=== PATIENT | male | born 2000 | race Caucasian/White ===

== ENCOUNTER 2023-11-13 12:21 | Emergency (ER) | payer SELFPAY ==
[2023-11-13 12:38] VITALS: BP 132/91
[2023-11-13 12:44] VITALS: BMI 22.4
--- NOTE | 2023-11-13 13:49 | ED.GENMED ---
History of Present Illness
General
Chief Complaint: Crisis Evaluation
Source: patient
Exam Limitations: none
Time Seen by Provider: 11/13/23 12:59
Nursing documentation reviewed up to this point in time: agreed with
History of Present Illness
History of Present Illness:
Patient is a 23-year-old male who presents to the ER for crisis evaluation. Patient has a history of anxiety depression and previous suicide attempt. He was on Lexapro and Depakote however stopped this a while ago because he thought he was okay.
He just reports he is by himself and feeling down. He feels suicidal last night. He denies now but reports he 'just feel hopeless.'
He presented via EMS and reports he called crisis who recommended he call EMS.
Patient has no physical complaints. He takes no other medications. He denies smoking cigarettes he does smoke occasional marijuana he denies any other drug use.
Review of Systems
Review of Systems
Allergies reviewed?: Yes
All Other Systems: ROS reviewed and negative except as documented in HPI and ROS
Constitutional: Reports no symptoms; Denies fever, fatigue or chills
Cardiac: Reports no symptoms
ABD/GI: Reports no symptoms
Musculoskeletal: Reports no symptoms
Skin: Reports no symptoms
Neurological: Reports no symptoms
Psychiatric: Reports no symptoms
Phy Exam
General Physical Exam
General Presentation: no apparent distress
General age: appears stated age
General Skin: warm and dry
General Habitus: normal
General Mental: alert
General Hydration: appears well hydrated
Neurological Exam
Neurological Exam: alert and oriented x3
Musculoskeletal Exam
Musculoskeletal Exam: full ROM
Skin Exam
Skin Exam: normal color and warm/dry
Psychiatric Exam
Psychiatric Exam: depressed and other (Flat affect)
Course
Orders/Labs/Results
Orders:
Orders
11/13/23 13:40
Complete Blood Count/With Diff Urgent
Comprehensive Metabolic Panel Urgent
11/13/23 13:41
Urine Drug Abuse Screen Stat
Date Specimen was Collected: 11/13/23
Time Specimen was Collected: 13:41
Vital Signs
Initial and Last Documented VS:
Initial Vital Signs
Temp Pulse Resp BP Pulse Ox
98.6 F 82 18 132/91 100
11/13/23 12:38 11/13/23 12:38 11/13/23 12:38 11/13/23 12:38 11/13/23 12:38
Last Documented Vital Signs
Temp Pulse Resp BP Pulse Ox
98.6 F 82 18 132/91 100
11/13/23 12:38 11/13/23 12:38 11/13/23 12:38 11/13/23 12:38 11/13/23 12:38
MDM/Problems Addressed
Differential Diagnosis Includes:
not limited to: depression ,suicidal ideation
MDM/Problems Addressed:
Patient presents for depression, suicidal ideation last night denies presently. Patient does have flat affect. Discussed with crisis who requested blood work checked patient cleared medically for crisis.
*Pulse Oximetry
Patient hypoxic: no
*Critical Care Note
Total Time (30-74mins, 75-104mins- exclusive of procedures): Not Applicable
ED Attending Note
-
Portions of this chart may have been created with voice recognition software.� Occasional wrong word or��sound alike� substitutions may have occurred due to the inherent limitations of voice recognition software.
Discharge Plan
Departure
Patient Disposition: [facility]
Date of Disposition: 11/13/23
Time of Disposition: 13:57
Patient with high blood pressure during this ER visit?: Yes
Condition: Fair
Covid-19: Not Applicable
Discharge Problem:
Depression
Referrals:
UNKNOWN - PT DOES,NOT KNOW [Family Provider] -
Interventions
Interventions:
*Risk Screen - Suicide Last Done: 11/13/23 12:27
*General Assessment Last Done: 11/13/23 12:43
*Neglect/Abuse Screening Last Done: 11/13/23 12:27
*ED COVID-19 Vaccine History Last Done: 11/13/23 12:42
ED-Psychological Assessment Last Done: 11/13/23 12:42
Discharge Date and Time
Print Language: GREENLANDIC
[2023-11-13 13:56] LABS: % Basophils 0.7 % (0-2); % Eosinophils 6.2 % (0-6); % Immature Granulocytes 0.4 % (0-0.5); % Lymphocytes 9.8 % (20.5-51.1); % Monocytes 4.6 % (1.7-9.3); % Neutrophils 78.3 % (42.2-75.2); Absolute Basophils 0.1 10^3/uL (0-0.2); Absolute Eosinophils 0.8 10^3/uL (0-0.7); Absolute Immature Granulocytes 0.1 10^3/uL (0-0.05); Absolute Lymphocytes 1.2 10^3/uL (1.2-3.4); Absolute Monocytes 0.6 10^3/uL (0.1-0.6); Absolute Neutrophils 9.6 10^3/uL (1.4-6.5); Hematocrit 42.6 % (39.0-52.0); Hemoglobin 15.1 g/dL (13.0-18.0); Mean Corp Hgb Conc. 35.4 g/dL (33.0-37.0); Mean Corpuscular Hgb 29.9 pg (27.0-31.0); Mean Corpuscular Volume 84.4 fL (80.0-94.0); Mean Platelet Volume 10.3 fL (7.4-10.4); Nucleated Red Blood Cells % 0 % (-); Platelet Count 284 10^3/uL (130-400); Red Blood Cell Count 5.05 10^6/uL (4.70-6.10); Red Cell Dist. Width 11.6 % (11.5-14.5); White Blood Cell Count 12.2 10^3/uL (4.8-10.8)
[2023-11-13 14:09] LABS: ALT (SGPT) 15 U/L (0-50); AST (SGOT) 25 U/L (17-59); Albumin 4.8 g/dl (3.5-5.0); Alkaline Phosphatase 48 U/L (38-126); Blood Urea Nitrogen 11 mg/dl (9-20); Calcium 9.7 mg/dl (8.4-10.2); Carbon Dioxide 28 mmol/L (22-30); Chloride 103 mmol/L (98-107); Estimated Creatinine Clearance 122 ml/min; Glucose 75 mg/dl (70-99); Potassium 4.2 mmol/L (3.5-5.1); Sodium 144 mmol/L (135-145); Total Bilirubin 0.5 mg/dl (0.2-1.3); Total Protein 7.5 g/dl (6.3-8.2); eGFR > 60.00
== END 2023-11-13 16:43 ==
LOC: EMR 12:21
PROVIDERS: Nurse Practitioner; EMERGENCY PHYSICIAN Emergency Medicine
DX: F32.A Depression, unspecified (principal); F41.8 Other specified anxiety disorders
CPT/HCPCS: 99283; 80053; 85025

== ENCOUNTER 2024-02-18 16:04 | Emergency (ER) | payer SELFPAY ==
[2024-02-18 16:19] VITALS: BP 121/86
--- NOTE | 2024-02-18 16:21 | ED.GENMED ---
History of Present Illness
General
Chief Complaint: Foreign Body Ingestion
Source: patient
Time Seen by Provider: 02/18/24 16:23
History of Present Illness
History of Present Illness:
23-year-old male with past medical history of anxiety and depression presenting to the emergency department for evaluation after he swallowed a small piece of a plastic fork prong around 3 PM. Patient states initially felt some discomfort in his
throat but was able to tolerate water and states presently he has no symptoms. Patient was concerned that there could still be something wrong so he decided to come to the hospital via EMS. No other concerns at this time.
Past History
Past History
ED Past Medical History: Psychiatric
ED Past Surgical History: Other
Social History
Tobacco: Non-smoker
Alcohol: None
Drug: None
Personal: Single
Living: alone
Review of Systems
Review of Systems
All Other Systems: ROS reviewed and negative except as documented in HPI and ROS
Phy Exam
Physical Exam
Physical Exam:
GENERAL: Alert , in no apparent distress
EYE: conjunctiva clear
Head: Normocephalic atraumatic
NECK: Supple, No tonsillar edema or exudates. No foreign body, no stridor or trismus
ENT: mmm.
LUNGS: no acute respiratory distress
NEUROLOGICAL: Alert and oriented
SKIN: Warm and dry, skin intact.
MUSCULOSKELETAL: well perfused.
PSYCH: Normal and appropriate interaction.
Scores
Heart Failure Risk
Heart Failure Risk Score: Not Applicable
Heart Score for Chest Pain Patients
STEMI patient?: Not applicable
Withdrawal Assessment of Alcohol
Withdrawal Assessment Completed?: Not applicable
Course
Vital Signs
Initial and Last Documented VS:
Initial Vital Signs
Temp Pulse Resp BP Pulse Ox
98.5 F 83 18 121/86 98
02/18/24 16:19 02/18/24 16:19 02/18/24 16:19 02/18/24 16:19 02/18/24 16:19
Last Documented Vital Signs
Temp Pulse Resp BP Pulse Ox
98.5 F 83 18 121/86 98
02/18/24 16:19 02/18/24 16:19 02/18/24 16:19 02/18/24 16:19 02/18/24 16:19
MDM/Problems Addressed
Differential Diagnosis Includes:
Accidental foreign body ingestion, no respiratory distress, no concern for dysphagia or odynophagia
MDM/Problems Addressed:
23-year-old male presenting to the emergency department after swallowing a small piece of a plastic fork. No fevers or infectious symptoms. At this time patient is asymptomatic. Discussed with patient that because he swallowed a plastic fork this
would be unlikely to show up on x-ray as well as given the size of the prong there would be likely no intervention. Patient is otherwise stable for discharge home and aware precautions.
*Pulse Oximetry
Patient hypoxic: no
*Critical Care Note
Total Time (30-74mins, 75-104mins- exclusive of procedures): Not Applicable
ED Attending Note
-
Portions of this chart may have been created with voice recognition software.� Occasional wrong word or��sound alike� substitutions may have occurred due to the inherent limitations of voice recognition software.
Discharge Plan
Departure
Patient Disposition: Home (Routine Discharge)
Date of Disposition: 02/18/24
Time of Disposition: 16:21
Patient with high blood pressure during this ER visit?: No
Discharge Problem:
Swallowed foreign body
Instructions: Swallowed Objects, Adult (DC)
Interventions
Interventions:
*Risk Screen - Suicide Last Done: 02/18/24 16:19
*General Assessment Last Done: 02/18/24 16:19
*Neglect/Abuse Screening Last Done: 02/18/24 16:19
ED- Fall Risk Assessment Last Done: 02/18/24 16:28
*ED COVID-19 Vaccine History Last Done: 02/18/24 16:19
*Nursing Disposition Last Done: 02/18/24 16:28
GS-Dbxdaw-Uksiuvncot Assessment Last Done: 02/18/24 16:28
ED- Pulmonary Assessment Last Done: 02/18/24 16:28
ED-EENT Assessment Last Done: 02/18/24 16:28
Discharge Date and Time
Discharge Date/Time: 02/18/24 16:29
Print Language: ZAMBIAN
== END 2024-02-18 16:29 | disposition home or self-care (01) ==
LOC: EMR 16:04
PROVIDERS: EMERGENCY PHYSICIAN Emergency Medicine
DX: T18.9XXA Foreign body of alimentary tract, part unspecified, initial encounter (principal); W44.9XXA Unspecified foreign body entering into or through a natural orifice, initial encounter; F41.8 Other specified anxiety disorders
CPT/HCPCS: 99282

== ENCOUNTER 2024-07-23 14:06 | Emergency (ER) | payer MEDICARE, SELFPAY ==
[2024-07-23 14:13] VITALS: BP 139/109
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
[2024-07-23 17:14] LABS: Amphetamines Negative (Negative); Barbiturates Negative (Negative); Benzodiazepines Negative (Negative); Buprenorphine Negative (Negative); Cocaine Negative (Negative); Marijuana Positive (Negative); Methadone Negative (Negative); Methamphetamines Negative (Negative); Opiates Negative (Negative); Phencyclidine Negative (Negative); Tricyclic Antidepressants Negative (Negative)
[2024-07-23 17:16] VITALS: BP 150/97
[2024-07-24 00:10] VITALS: BP 132/75
== END 2024-07-24 01:20 ==
LOC: EMR 14:06
PROVIDERS: EMERGENCY PHYSICIAN Student in an Organized Health Care Education/Training Program
DX: F32.A Depression, unspecified (principal); R45.851 Suicidal ideations; Z91.52 Personal history of nonsuicidal self-harm
CPT/HCPCS: 99285; 80306

== ENCOUNTER 2024-10-27 00:06 | Emergency (ER) | payer MEDICARE, OTHER, SELFPAY ==
[2024-10-27 00:07] VITALS: BP 150/87; BMI 22.1
--- NOTE | 2024-10-27 00:29 | ED.GENMED ---
History of Present Illness
General
Chief Complaint: Abdominal Pain
Time Seen by Provider: 10/27/24 00:24
History of Present Illness
History of Present Illness:
24-year-old male with history of anxiety depression presents to the emergency department via EMS for evaluation of lower abdominal pain and pain with urination. States he went to urgent care 2 days ago was diagnosed with UTI and put on Bactrim. He
is not sure how many doses he has taken thus far. Feels as though his pain is worsening. No fevers or chills. Denies any nausea or vomiting or diarrhea. He denies concern for STI, states 'I have not had a sexual partner in a long time'.
Past History
Past History
ED Past Medical History: Psychiatric
ED Past Surgical History: Other
Social History
Tobacco: Non-smoker
Alcohol: None
Drug: None
Personal: Single
Living: alone
Review of Systems
Review of Systems
Allergies reviewed?: Yes
All Other Systems: ROS reviewed and negative except as documented in HPI and ROS
Phy Exam
Physical Exam
Physical Exam:
GEN: Well appearing, NAD, WDWN
HEENT: Oral mucosa moist, no scleral icterus
Cardiac: Regular rate
Lung: No respiratory distress, no tachypnea
Abdomen: Soft, grossly nontender
MSK: No gross deformity or injuries
Skin: Good color, no pallor or jaundice, no rashes
Neuro: AO x3, moves all extremities freely
Psych: Calm, cooperative
Course
Orders/Labs/Results
Orders:
Orders
10/27/24 00:14
IV Insert/Care/Rem.- Treatment PRN
10/27/24 00:15
Complete Blood Count/With Diff Urgent
Comprehensive Metabolic Panel Urgent
Lipase Urgent
10/27/24 01:24
Urinalysis Reflex To Culture Urgent
Date Specimen was Collected: 10/27/24
Time Specimen was Collected: 01:19
10/27/24 02:08
Magnesium Citrate [Citroma] 300 ml PO ONCE ONE
Abnormal Lab Results
10/27/24 10/27/24
00:15 01:24
RDW 11.3 L %
(11.5-14.5)
MPV 10.8 H fL
(7.4-10.4)
Abs Immat Gran (auto) 0.1 H 10^3/uL
(0-0.05)
Absolute Monos (auto) 0.7 H 10^3/uL
(0.1-0.6)
Absolute Eos (auto) 0.9 H 10^3/uL
(0-0.7)
Immature Gran % 1.4 H %
(0-0.5)
Eosinophils % 9.3 H %
(0-6)
Total Protein 8.3 H g/dl
(6.3-8.2)
Albumin 5.2 H g/dl
(3.5-5.0)
Urine Ketones 3+ A
(Negative)
10/27/24 00:15
10/27/24 00:15
Vital Signs
Initial and Last Documented VS:
Initial Vital Signs
Temp Pulse Resp BP Pulse Ox
98.4 F 93 16 150/87 99
10/27/24 00:07 10/27/24 00:07 10/27/24 00:07 10/27/24 00:07 10/27/24 00:07
Last Documented Vital Signs
Temp Pulse Resp BP Pulse Ox
98.4 F 93 16 150/87 98
10/27/24 00:07 10/27/24 00:07 10/27/24 00:07 10/27/24 00:07 10/27/24 00:30
MDM/Problems Addressed
MDM/Problems Addressed:
Patient's labs and urinalysis are bland. Suspect this pain is predominant due to constipation. Provided with magnesium citrate. Suitable for discharge home
*Pulse Oximetry
SaO2: 98
Oxygen Mode of Delivery: Room air
Patient hypoxic: no
*Critical Care Note
Total Time (30-74mins, 75-104mins- exclusive of procedures): Not Applicable
ED Attending Note
-
Portions of this chart may have been created with voice recognition software.� Occasional wrong word or��sound alike� substitutions may have occurred due to the inherent limitations of voice recognition software.
Discharge Plan
Departure
Patient Disposition: Home (Routine Discharge)
Date of Disposition: 10/27/24
Time of Disposition: 02:08
Patient with high blood pressure during this ER visit?: No
Discharge Problem:
Constipation
Instructions: Constipation, Adult (DC)
Prescriptions:
No Action
Bactrim
1 pill PO Q12H
Rx Instructions:
unsure of dose
Referrals:
Benny Cates PA [Family Provider, Family Practice]
Activity Restrictions/Additional Instructions:
Take 1/2 bottle of the magnesium citrate, if no results in 4-8 hours, consume the other half
Finish your antibiotics
Interventions
Interventions:
*Risk Screen - Suicide Last Done: 10/27/24 00:07
*General Assessment Last Done: 10/27/24 00:07
*Neglect/Abuse Screening Last Done: 10/27/24 00:07
*ED- Fall Risk Assessment Last Done: 10/27/24 00:17
*ED COVID-19 Vaccine History Last Done: 10/27/24 00:17
CF-Qqjjat-Payumoyjsq Assessment Last Done: 10/27/24 00:17
Discharge Date and Time
Print Language: MOHAWK
[2024-10-27 00:39] LABS: Hematocrit 45.8 % (39.0-52.0); Hemoglobin 15.9 g/dL (13.0-18.0); Mean Corp Hgb Conc. 34.7 g/dL (33.0-37.0); Mean Corpuscular Volume 85.1 fL (80.0-94.0); Nucleated Red Blood Cells % 0 % (-); Platelet Count 273 10^3/uL (130-400); Red Cell Dist. Width 11.3 % (11.5-14.5)
[2024-10-27 00:45] LABS: ALT (SGPT) 15 U/L (0-50); AST (SGOT) 21 U/L (17-59); Albumin 5.2 g/dl (3.5-5.0); Alkaline Phosphatase 66 U/L (38-126); Blood Urea Nitrogen 11 mg/dl (9-20); Calcium 9.9 mg/dl (8.4-10.2); Carbon Dioxide 24 mmol/L (22-30); Chloride 100 mmol/L (98-107); Estimated Creatinine Clearance 97 ml/min; Glucose 81 mg/dl (70-99); Lipase 107 U/L (23-300); Potassium 3.7 mmol/L (3.5-5.1); Sodium 137 mmol/L (135-145); Total Protein 8.3 g/dl (6.3-8.2); eGFR > 60.00
[2024-10-27 01:49] LABS: Urine Character Clear (Clear)
[2024-10-27] MEDS: CITROMA 300 ML PO (02:12)
== END 2024-10-27 04:00 | disposition home or self-care (01) ==
LOC: EMR 00:06
PROVIDERS: Physician Assistant; EMERGENCY PHYSICIAN Emergency Medicine; FAMILY PHYSICIAN Physician Assistant
DX: K59.00 Constipation, unspecified (principal); R30.9 Painful micturition, unspecified; Z87.440 Personal history of urinary (tract) infections
CPT/HCPCS: 99283; 80053; 81003; 83690; 85025; 87491; 87591

== ENCOUNTER 2024-10-27 21:47 | Emergency (ER) | payer MEDICARE, OTHER, SELFPAY ==
[2024-10-27 21:51] VITALS: BP 141/87
[2024-10-27 23:58] VITALS: BP 130/79
[2024-10-28 00:44] VITALS: BP 121/66
[2024-10-28] MEDS: MOTRIN 400 MG PO (01:12)
[2024-10-28 01:14] VITALS: BP 109/80
[2024-10-28 01:15] VITALS: BP 101/61
--- NOTE | 2024-10-28 01:28 | ED.GENMED ---
History of Present Illness
General
Chief Complaint: Male Genito-Urinary Symptoms
Source: patient
Exam Limitations: none
Time Seen by Provider: 10/27/24 23:34
Nursing documentation reviewed up to this point in time: agreed with
History of Present Illness
History of Present Illness:
Patient seen in ED couple days ago secondary to urinary difficulties along with constipation, presents to ED secondary to continual symptoms despite medications as outpatient. Denies fever or chills. Denies abdominal pain. Denies vomiting or
diarrhea. Denies trauma. Denies recent change in diet. Patient states that he has also been evaluated by his primary care physician 2 weeks ago for similar complaint. Denies weight loss.
Past History
Past History
ED Past Medical History: Psychiatric
ED Past Surgical History: Other
Social History
Tobacco: Non-smoker
Alcohol: None
Drug: None
Personal: Single
Living: alone
Review of Systems
Review of Systems
Allergies reviewed?: Yes
All Other Systems: ROS reviewed and negative except as documented in HPI and ROS
Constitutional: Reports no symptoms; Denies fever
ABD/GI: Reports abdominal pain and constipated; Denies nausea, vomiting or diarrhea
: Reports difficulty voiding; Denies dysuria or frequency
Musculoskeletal: Reports no symptoms
Skin: Reports no symptoms
Neurological: Reports no symptoms
Phy Exam
Physical Exam
Physical Exam:
Physical Exam
General: no apparent distress, not acutely ill. afebrile
Head: nc/at. eomi
Neck: supple. no meningeal signs.
Heart: s1/s2 regular rate and rhythm
Lungs: no acute respiratory distress. clear bilaterally
Abdomen: normal bowel sounds. not tender. no distention
: no lesions noted. no scrotal swelling. no penile discharge
Neuro: alert and oriented x 3. no focal neurological deficits
Skin: no rash
Psychiatric: well kept. interactive and cooperative
Extremities: no edema. no calf tenderness.
Course
Orders/Labs/Results
Orders:
Orders
10/28/24 00:19
CR Abdomen - 1 View Urgent
Comment:
Reason For Exam: constipation
10/28/24 00:27
Bladder Scan- Treatment ONCE
10/28/24 01:01
Ibuprofen [Motrin] 400 mg PO NOW STA
Vital Signs
Initial and Last Documented VS:
Initial Vital Signs
Temp Pulse Resp BP Pulse Ox
98.9 F 116 18 141/87 98
10/27/24 21:51 10/27/24 21:51 10/27/24 21:51 10/27/24 21:51 10/27/24 21:51
Last Documented Vital Signs
Temp Pulse Resp BP Pulse Ox
98.9 F 85 20 101/61 96
10/27/24 21:51 10/28/24 00:44 10/28/24 00:44 10/28/24 01:15 10/28/24 01:32
MDM/Problems Addressed
MDM/Problems Addressed:
Patient with very nonspecific presentation in ED. Unclear whether or not patient has been taking already prescribed antibiotics or laxatives, as had been discussed. Nonetheless, patient is able to void on his own with postvoid residual bladder
scan less than 40 mL urine. As such, no indication for any invasive procedures, i.e. catheter placement. Patient will be encouraged to follow-up with referred urologist for reevaluation.
*Pulse Oximetry
SaO2: 96
Oxygen Mode of Delivery: Room air
Patient hypoxic: no
*Critical Care Note
Total Time (30-74mins, 75-104mins- exclusive of procedures): Not Applicable
ED Attending Note
-
Portions of this chart may have been created with voice recognition software.� Occasional wrong word or��sound alike� substitutions may have occurred due to the inherent limitations of voice recognition software.
Discharge Plan
Departure
Patient Disposition: Home (Routine Discharge)
Date of Disposition: 10/28/24
Time of Disposition: 01:32
Patient with high blood pressure during this ER visit?: Yes
Condition: Good
Discharge Problem:
Constipation
Instructions: Constipation in adults - ED (DC)
Prescriptions:
No Action
Bactrim
1 pill PO Q12H
Rx Instructions:
unsure of dose
Referrals:
Liu Coker MD [Active, Urology]
UNKNOWN - PT DOES,NOT KNOW [Family Provider]
Activity Restrictions/Additional Instructions:
As discussed, please follow-up with your primary care physician and/or referred urologist for further evaluation and treatment. In the meantime, still recommend continued use of stool softeners and laxatives, i.e. MiraLAX, as outpatient. Please
consider return to ED with worsening symptoms, i.e. fever/worsening pain/inability to urinate/vomiting.
Interventions
Interventions:
*Risk Screen - Suicide Last Done: 10/27/24 21:51
*General Assessment Last Done: 10/27/24 21:51
*Neglect/Abuse Screening Last Done: 10/27/24 21:51
*ED- Fall Risk Assessment Last Done: 10/27/24 21:51
*ED COVID-19 Vaccine History Last Done: 10/27/24 21:51
*Nursing Disposition Last Done: 10/28/24 01:40
ED-Male Genitourinary Assessment Last Done: 10/28/24 00:40
Discharge Date and Time
Discharge Date/Time: 10/28/24 02:02
Print Language: WELSH
== END 2024-10-28 02:02 | disposition home or self-care (01) ==
LOC: EMR 21:47
PROVIDERS: EMERGENCY PHYSICIAN Emergency Medicine
DX: K59.00 Constipation, unspecified (principal)
CPT/HCPCS: 99283; 74018